=== PATIENT | female | born 1965 | race American Indian/Alaskan Native ===

== ENCOUNTER 2019-03-06 12:51 | Emergency (ER) | payer BC, OTHER ==
[2019-03-06] MEDS ORDERED: SODIUM CHLORIDE 0.9% 500 ML 500 ML IV ONE (14:20)
[2019-03-06] MEDS ORDERED: ACETAMINOPHEN 500 MG TAB PO STA (14:20)
--- NOTE | 2019-03-06 14:22 | Event Note ---
ED Screening Note Date of service: 03/06/19 Time: 14:17 ED Screening Note: 54 y o f presents with back pain with malaise and fever x 3 days ago cc of n/v, hematuria began today This initial assessment/diagnostic orders/clinical plan/treatment(s) is/are subject to change based on patients health status, clinical progression and re- assessment by fellow clinical providers in the ED. Further treatment and workup at subsequent clinical providers discretion. Patient/guardian urged not to elope from the ED as their condition may be serious if not clinically assessed and managed. Initial orders include: ivf sepsis labs ordered main side eval
[2019-03-06 14:50] LABS: Hematocrit 43.6 % (30.3-42.9); Hemoglobin 14.5 gm/dl (10.1-14.3); Mean Corpuscular HGB Conc 33 % (30-34); Mean Corpuscular Volume 89 fl (79-97); Platelet Count 173 K/mm3 (140-440); Red Cell Distribution Width 12.8 % (13.2-15.2)
[2019-03-06 15:01] LABS: Bacteria,Urine 4+ /HPF (Negative); Bilirubin,Urine NEG (Negative); Blood,Urine LG (Negative); Color,Urine Red (Yellow); Mucus,Urine 3+ /HPF; Urobilinogen,Urine < 2.0 mg/dL (<2.0)
[2019-03-06 15:04] LABS: INR 0.92 (0.87-1.13)
[2019-03-06 15:04] LABS: RBC,Urine > 182.0 /HPF (0.0-6.0)
--- NOTE | 2019-03-06 15:08 | XRay Report ---
CHEST 2 VIEWS INDICATION: fever. COMPARISON: None FINDINGS: Support devices: None. Heart: Within normal limits. Lungs/pleura: No acute air space or interstitial disease. No pneumothorax. Additional findings: None. IMPRESSION: No acute findings. Signer Name: Rajesh Grullon Jr, MD Signed: 03/06/2019 3:04 PM Workstation Name: [id number]
[2019-03-06 15:28] LABS: Basophils % (Manual) 0 % (0.0-1.8); Eosinophils % (Manual) 0 % (0.0-4.3); Platelet Estimate Consistent w Auto; RBC Morphology Normal; Total Cells Counted 100
[2019-03-06 16:33] LABS: Alanine Aminotransferase 15 units/L (7-56); Albumin 4.1 g/dL (3.9-5); BUN/Creatinine Ratio 13; Blood Urea Nitrogen 10 mg/dL (7-17); Calcium 9.4 mg/dL (8.4-10.2); Hemolysis Index 8
[2019-03-06] MEDS ORDERED: cefTRIAXone/NS 1 GM/50 ML 1 GM/50 ML BAG IV ONE (18:15)
[2019-03-06] MEDS ORDERED: SODIUM CHLORIDE 0.9% 1000 ML 1,000 ML IV ONE (18:15)
--- NOTE | 2019-03-06 18:36 | Emergency Department Report ---
ED General Adult HPI - General Chief complaint: Upper Respiratory Infection Stated complaint: FLU SYMPTOMS Source: patient Mode of arrival: Ambulatory Limitations: No Limitations - History of Present Illness Initial comments: 54-year-old -[place] female presents with complaint of upper respiratory issues, nausea, body aches and blood in urine. Patient states that she is menopausal for the last 4 years. Patient states she's had a tubal ligation for 12 years. Does complain of nausea vomiting. Patient denies any past medical history currently takes no medications on a daily basis and has no known drug allergies. - Related Data Previous Rx's Medication Instructions Recorded Last Taken Type Nitrofurantoin [place]/M-Cryst 100 mg PO Q12HR #20 capsule 03/06/19 Unknown Rx [Macrobid CAP] Allergies Allergy/AdvReac Type Severity Reaction Status Date / Time No Known Allergies Allergy Unverified 12/22/13 11:09 ED Review of Systems ROS: Stated complaint: FLU SYMPTOMS Other details as noted in HPI ED Past Medical Hx - Past Medical History Previous Medical History?: No - Surgical History Past Surgical History?: No - Social History Smoking Status: Never Smoker Substance Use Type: None - Medications Home Medications: Home Medications Medication Instructions Recorded Confirmed Last Taken Type Nitrofurantoin [place]/M-Cryst 100 mg PO Q12HR #20 capsule 03/06/19 Unknown Rx [Macrobid CAP] ED Physical Exam - General Limitations: No Limitations ED Course Vital Signs 03/06/19 12:56 Temperature 100.4 F H Pulse Rate 104 H Respiratory 18 Rate Blood Pressure 94/69 O2 Sat by Pulse 95 Oximetry ED Medical Decision Making - Lab Data Result diagrams: 03/06/19 14:34 03/06/19 14:34 Temp Pulse Resp BP Pulse Ox 100.4 F H 104 H 18 94/69 95 03/06/19 12:56 03/06/19 12:56 03/06/19 12:56 03/06/19 12:56 03/06/19 12:56 Laboratory Last Values WBC 2.7 K/mm3 (4.5-11.0) L 03/06/19 14:34 RBC 4.90 M/mm3 (3.65-5.03) 03/06/19 14:34 Hgb 14.5 gm/dl (10.1-14.3) H 03/06/19 14:34 Hct 43.6 % (30.3-42.9) H 03/06/19 14:34 MCV 89 fl (79-97) 03/06/19 14:34 MCH 30 pg (28-32) 03/06/19 14:34 MCHC 33 % (30-34) 03/06/19 14:34 RDW 12.8 % (13.2-15.2) L 03/06/19 14:34 Plt Count 173 K/mm3 (140-440) 03/06/19 14:34 [place] % (Auto) Senior Mechanical Designer 03/06/19 14:34 Add Manual Diff Complete 03/06/19 14:34 Total Counted 100 03/06/19 14:34 Seg Neuts % (Manual) 59.0 % (40.0-70.0) 03/06/19 14:34 Band Neutrophils % 0 % 03/06/19 14:34 Lymphocytes % (Manual) 32.0 % (13.4-35.0) 03/06/19 14:34 Reactive Lymphs % (Man) 0 % 03/06/19 14:34 Monocytes % (Manual) 9.0 % (0.0-7.3) H 03/06/19 14:34 Eosinophils % (Manual) 0 % (0.0-4.3) 03/06/19 14:34 Basophils % (Manual) 0 % (0.0-1.8) 03/06/19 14:34 Metamyelocytes % 0 % 03/06/19 14:34 Myelocytes % 0 % 03/06/19 14:34 Promyelocytes % 0 % 03/06/19 14:34 Blast Cells % 0 % 03/06/19 14:34 Nucleated RBC % Not Reportable 03/06/19 14:34 Seg Neutrophils # Man 1.6 K/mm3 (1.8-7.7) L 03/06/19 14:34 Band Neutrophils # 0.0 K/mm3 03/06/19 14:34 Lymphocytes # (Manual) 0.9 K/mm3 (1.2-5.4) L 03/06/19 14:34 Abs React Lymphs (Man) 0.0 K/mm3 03/06/19 14:34 Monocytes # (Manual) 0.2 K/mm3 (0.0-0.8) 03/06/19 14:34 Eosinophils # (Manual) 0.0 K/mm3 (0.0-0.4) 03/06/19 14:34 Basophils # (Manual) 0.0 K/mm3 (0.0-0.1) 03/06/19 14:34 Metamyelocytes # 0.0 K/mm3 03/06/19 14:34 Myelocytes # 0.0 K/mm3 03/06/19 14:34 Promyelocytes # 0.0 K/mm3 03/06/19 14:34 Blast Cells # 0.0 K/mm3 03/06/19 14:34 WBC Morphology Not Reportable 03/06/19 14:34 Hypersegmented Neuts Not Reportable 03/06/19 14:34 Hyposegmented Neuts Not Reportable 03/06/19 14:34 Hypogranular Neuts Not Reportable 03/06/19 14:34 Smudge Cells Not Reportable 03/06/19 14:34 Toxic Granulation Not Reportable 03/06/19 14:34 Toxic Vacuolation Not Reportable 03/06/19 14:34 Dohle Bodies Not Reportable 03/06/19 14:34 Pelger-Huet Anomaly Not Reportable 03/06/19 14:34 Liz Rods Not Reportable 03/06/19 14:34 Platelet Estimate Consistent w auto 03/06/19 14:34 Clumped Platelets Not Reportable 03/06/19 14:34 Plt Clumps, EDTA Not Reportable 03/06/19 14:34 Large Platelets Not Reportable 03/06/19 14:34 Giant Platelets Not Reportable 03/06/19 14:34 Platelet Satelliting Not Reportable 03/06/19 14:34 Plt Morphology Comment Not Reportable 03/06/19 14:34 RBC Morphology Normal 03/06/19 14:34 Dimorphic RBCs Not Reportable 03/06/19 14:34 Polychromasia Not Reportable 03/06/19 14:34 Hypochromasia Not Reportable 03/06/19 14:34 Poikilocytosis Not Reportable 03/06/19 14:34 Anisocytosis Not Reportable 03/06/19 14:34 Microcytosis Not Reportable 03/06/19 14:34 Macrocytosis Not Reportable 03/06/19 14:34 Spherocytes Not Reportable 03/06/19 14:34 Pappenheimer Bodies Not Reportable 03/06/19 14:34 Sickle Cells Not Reportable 03/06/19 14:34 Target Cells Not Reportable 03/06/19 14:34 Tear Drop Cells Not Reportable 03/06/19 14:34 Ovalocytes Not Reportable 03/06/19 14:34 Helmet Cells Not Reportable 03/06/19 14:34 [place] Bodies Not Reportable 03/06/19 14:34 [place] Rings Not Reportable 03/06/19 14:34 [place] Cells Not Reportable 03/06/19 14:34 Bite Cells Not Reportable 03/06/19 14:34 Crenated Cell Not Reportable 03/06/19 14:34 Elliptocytes Not Reportable 03/06/19 14:34 Acanthocytes (Spur) Not Reportable 03/06/19 14:34 Rouleaux Not Reportable 03/06/19 14:34 Hemoglobin C Crystals Not Reportable 03/06/19 14:34 Schistocytes Not Reportable 03/06/19 14:34 Malaria parasites Not Reportable 03/06/19 14:34 Lorne Bodies Not Reportable 03/06/19 14:34 Hem Pathologist Commnt No 03/06/19 14:34 PT 12.5 Sec. (12.2-14.9) 03/06/19 14:34 INR 0.92 (0.87-1.13) 03/06/19 14:34 VBG pH 7.353 (7.320-7.420) 03/06/19 14:34 Sodium 149 mmol/L (137-145) H 03/06/19 14:34 Potassium 4.2 mmol/L (3.6-5.0) 03/06/19 14:34 Chloride 109.1 mmol/L (98-107) H 03/06/19 14:34 Carbon Dioxide 21 mmol/L (22-30) L 03/06/19 14:34 Anion Gap 23 mmol/L 03/06/19 14:34 BUN 10 mg/dL (7-17) 03/06/19 14:34 Creatinine 0.8 mg/dL (0.7-1.2) 03/06/19 14:34 Estimated GFR > 60 ml/min 03/06/19 14:34 BUN/Creatinine Ratio 13 % 03/06/19 14:34 Glucose 119 mg/dL (65-100) H 03/06/19 14:34 Lactic Acid 0.80 mmol/L (0.7-2.0) 03/06/19 14:34 Calcium 9.4 mg/dL (8.4-10.2) 03/06/19 14:34 Total Bilirubin 0.30 mg/dL (0.1-1.2) 03/06/19 14:34 AST 24 units/L (5-40) 03/06/19 14:34 ALT 15 units/L (7-56) 03/06/19 14:34 Alkaline Phosphatase 56 units/L (35-129) 03/06/19 14:34 Total Protein 7.2 g/dL (6.3-8.2) 03/06/19 14:34 Albumin 4.1 g/dL (3.9-5) 03/06/19 14:34 Albumin/Globulin Ratio 1.3 % 03/06/19 14:34 Urine Color Red (Yellow) 03/06/19 13:20 Urine Turbidity Cloudy (Clear) 03/06/19 13:20 Urine pH 5.0 (5.0-7.0) 03/06/19 13:20 Ur Specific [place] 1.025 (1.003-1.030) 03/06/19 13:20 Urine Protein 100 mg/dl mg/dL (Negative) 03/06/19 13:20 Urine Glucose (UA) Neg mg/dL (Negative) 03/06/19 13:20 Urine Ketones Neg mg/dL (Negative) 03/06/19 13:20 Urine Blood Lg (Negative) 03/06/19 13:20 Urine Nitrite Pos (Negative) 03/06/19 13:20 Urine Bilirubin Neg (Negative) 03/06/19 13:20 Urine Urobilinogen < 2.0 mg/dL (<2.0) 03/06/19 13:20 Ur Leukocyte Esterase Tr (Negative) 03/06/19 13:20 Urine WBC (Auto) 13.0 /HPF (0.0-6.0) H 03/06/19 13:20 Urine RBC (Auto) > 182.0 /HPF (0.0-6.0) 03/06/19 13:20 U Epithel Cells (Auto) 2.0 /HPF (0-13.0) 03/06/19 13:20 Urine Bacteria (Auto) 4+ /HPF (Negative) 03/06/19 13:20 Urine Mucus 3+ /HPF 03/06/19 13:20 - Radiology Data Radiology results: report reviewed Patient: LEON MIRANDA#: [id number] : 1965 Acct:[id number] Age/Sex: 54 / F ADM Date: 03/06/19 Loc: ED Attending Dr: Ordering Physician: LISA ROBBINS Date of Service: 03/06/19 Procedure(s): XR chest routine 2V Accession Number(s): [id number] cc: LISA ROBBINS Fluoro Time In Minutes: CHEST 2 VIEWS INDICATION: fever. COMPARISON: None FINDINGS: Support devices: None. Heart: Within normal limits. Lungs/pleura: No acute air space or interstitial disease. No pneumothorax. Additional findings: None. IMPRESSION: No acute findings. Signer Name: Rajesh Grullon Jr, MD Signed: 03/06/2019 3:04 PM Workstation Name: [id number] Transcribed By: TTR Dictated By: RAJESH GRULLON JR, MD Electronically Authenticated By: RAJESH GRULLON JR, MD Signed Date/Time: 03/06/19 150 DD/ 1504 TD/TT: - Medical Decision Making 54-year-old -[place] female presents with complaint of upper respiratory issues, nausea, body aches and blood in urine. Patient states that she is menopausal for the last 4 years. Patient states she's had a tubal ligation for 12 years. Does complain of nausea vomiting. Patient denies any past medical history currently takes no medications on a daily basis and has no known drug allergies. SIRS criteria has been initiated by triage. Urinalysis shows the patient has a urinary tract infection positive for nitrates and blood protein and 3+ bacteria. Chest x-ray is negative for any acute findings. Patient will be given IV fluids, IV Zofran, IV Rocephin and by mouth acetaminophen. Critical care attestation.: If time is entered above; I have spent that time in minutes in the direct care of this critically ill patient, excluding procedure time. ED Disposition Clinical Impression: UTI (urinary tract infection) Is pt being admited?: No Does the pt Need Aspirin: No Condition: Stable Instructions: Urinary Tract Infection in Women (ED) Prescriptions: Nitrofurantoin [place]/M-Cryst [Macrobid CAP] 100 mg PO Q12HR #20 capsule Referrals: PRIMARY CARE, [Primary Care Provider] - 3-5 Days
[2019-03-06] MEDS ORDERED: ONDANSETRON 4 MG/2 ML INJ IV ONE (18:37)
[2019-03-06] MEDS ORDERED: ACETAMINOPHEN 500 MG TAB ONE (18:41)
[2019-03-06 19:47] VITALS: BP 120/74
== END 2019-03-06 19:54 | disposition home or self-care (01) ==
LOC: ED 12:51
DX: N39.0 Urinary tract infection, site not specified (principal)
CPT/HCPCS: 36415; 71046; 80053; 81001; 82140; 82805; 85007; 85025; 85610; 87040; 87086; 96365; 96375; 99284; J0696; J2405; J7030